=== PATIENT | male | born 1960 | race Caucasian/White ===

== ENCOUNTER → 2020-07-18 | Outpatient (CLI) | payer SELFPAY | LOC: M LABSMTC 09:32 | PROVIDERS: ATTEND Pediatrics | DX: Z11.52 Encounter for screening for COVID-19 (principal) ==

== ENCOUNTER → 2020-11-12 | Outpatient (CLI) | payer BC ==
--- NOTE | 2020-11-13 14:11 | REPVR ---
PROCEDURE INFORMATION: Exam: MR Lumbar Spine Without Contrast Exam date and time: 11/12/2020 2:53 PM Age: 59 years old Clinical indication: Low back pain; Patient HX: Lbp; Additional info: Dd lumbar region TECHNIQUE: Imaging protocol: Multiplanar magnetic resonance images of the lumbar spine without intravenous contrast. COMPARISON: No relevant prior studies available. FINDINGS: Vertebrae: Normal alignment. Diffuse degenerative facet arthropathy. Spinal cord: The conus medullaris is normal appearance at the L1 level. L1-L2: No significant disc disease. No significant spinal canal stenosis. No neural foraminal stenosis. L2-L3: No significant disc disease. No significant spinal canal stenosis. No neural foraminal stenosis. L3-L4: Mild disc space narrowing. No significant spinal canal stenosis. No neural foraminal stenosis. L4-L5: Left paracentral disc herniation which appears to extend superiorly from the disc space measuring 1.7 cm cc series 301, image 1 frame 5 x 1.5 cm in width x 7.2 mm AP series 601 frame 1 images 7-9. There is moderate spinal canal stenosis and narrowing of both lateral recesses greater on than right compressing the exiting left L5 nerve root and possibly the right and there may be compression of the left L4 nerve root in the proximal neural foramen. L5-S1: Disc space narrowing and endplate degeneration as well as marked degenerative facet arthropathy. There is a diffusely bulging annulus without significant spinal canal stenosis or neural foraminal narrowing. Soft tissues: Unremarkable. IMPRESSION: There is a left paracentral disc herniation L4-L5 with a probable free fragment which extends superiorly from the disc space. There appears to be compression of the exiting left L5 nerve root and possibly compression of the right L5 and left L4 nerve roots. Electronically signed by: Debbie Schuster On 11/13/2020 14:11:26 PM
== END ==
LOC: M RAD 13:50
PROVIDERS: ATTEND Orthopaedic Surgery
DX: M54.5 Low back pain (principal)